=== PATIENT | male | born 1955 | race Asian ===

== ENCOUNTER 2022-11-01 11:05 | Outpatient (CLI) | payer OTHER | END 2022-11-01 18:48 | disposition home or self-care (01) | LOC: US 11:05 | PROVIDERS: ATTEND Nurse Practitioner Family | DX: R60.0 Localized edema (principal) ==

== ENCOUNTER 2022-11-02 11:47 | Outpatient (CLI) | payer OTHER | END 2022-11-02 19:19 | disposition home or self-care (01) | LOC: CT 11:47 | PROVIDERS: ATTEND Nurse Practitioner Family | DX: R79.89 Other specified abnormal findings of blood chemistry (principal); R60.0 Localized edema | CPT/HCPCS: 36415; 82565; 84520; Q9963 ==